=== PATIENT | female | born 1950 | race Caucasian/White ===

== ENCOUNTER 2017-03-26 09:33 | Emergency (ER) | payer MEDICAID ==
[~2017-03-26] VITALS: Ht 162.6 cm; Wt 97.1 kg
[~2017-03-26 09:33] MED LIST: AMLO5TAB2; ASPI-266; BENA40TA2; CLON0.2T; HYDR25TA4; HYDR500T13; IBUP800T24; METF-312; METO25TA5; OXYBUTYNIN 5 MG TABLET; SIMV-13; [UNRECOGNIZED DRUG - CODE]
[2017-03-26] MEDS ORDERED: TRIAMTERENE-HCTZ (10:11)
[2017-03-26] MEDS ORDERED: WARF1TAB36 (10:11)
[2017-03-26] MEDS ORDERED: ATOR40TA52 (10:12)
[2017-03-26] MEDS ORDERED: CYCL5TAB (10:12)
[2017-03-26] MEDS ORDERED: WARF4TAB33 (10:14)
[2017-03-26] MEDS ORDERED: MECL12.554 (10:14)
[2017-03-26] MEDS ORDERED: MORP15TA43 (10:15)
[2017-03-26] MEDS ORDERED: GABA300C8 (10:15)
[2017-03-26] MEDS ORDERED: HYDROCODON-ACETAMINOPHN (10:15)
[2017-03-26] MEDS ORDERED: ENA10T PO (10:16)
[2017-03-26] MEDS ORDERED: SODIUM CHLORIDE 0.9% 250 ML IV ONE (11:25)
[2017-03-26] MEDS ORDERED: KETOROLAC TROMETH 30 MG/ML 1ML VIAL IV ONE (11:30)
[2017-03-26] MEDS ORDERED: DEXAMETHASONE SOD PHOS 4 MG/1ML SDV INJ IV ONE (11:30)
[2017-03-26] MEDS ORDERED: METOCLOPRAMIDE HCL 5MG/ml INJ 2ml VIAL IV ONE (11:30)
[2017-03-26 11:52] LABS: Basophils # (auto) 0 uL; Basophils % (auto) 0.2 % (0.0-2.0); Eosinophils # (auto) 0.1 uL; Eosinophils % (auto) 0.4 % (0.0-7.0); Hematocrit 40.5 % (36.0-46.0); Hemoglobin 13.2 g/dL (12.2-16.2); Lymphocytes % (auto) 7.1 % (10.0-50.0); Mean Corpuscular Hemoglobin 29.1 pg (28.0-32.0); Mean Corpuscular Hgb Conc. 32.7 g/dL (32.0-36.0); Mean Corpuscular Volume 88.9 fL (80.0-100.0); Monocytes # (auto) 0.8 uL; Monocytes % (auto) 5.6 % (0.0-12.0); Neutrophils # (auto) 12.7 uL; Neutrophils % (auto) 86.7 % (37.0-80.0); Platelet Count (auto) 281 10^3/uL (140-450); Red Cell Distribution Width 15.2 % (11.6-16.0); White Blood Cell 14.7 10^3/uL (4.4-10.8)
[2017-03-26 12:24] LABS: Albumin 3.5 g/dL (3.4-5.0); BUN/Creatinine Ratio 17.8; Bilirubin, Total 0.6 mg/dL (0.2-1.0); Calcium 9.6 mg/dL (8.5-10.1); Magnesium 1.8 mg/dL (1.6-2.6); Potassium 3.8 mmol/L (3.5-5.1); Total Protein 8.5 g/dL (6.4-8.2); Uric Acid 7.4 mg/dL (2.6-6.0)
[2017-03-26 13:39] VITALS: BP 157/61
[2017-03-26 14:35] LABS: Urine Bilirubin Negative (Negative); Urine Blood Negative /uL (Negative); Urine Color Yellow (Yellow); Urine Glucose Normal (Normal); Urine Ketone Negative (Negative); Urine Mucus FEW (None Seen); Urine RBC <1 /hpf (0 - 4); Urine Squamous Epithelial Cell FEW /hpf (<5); Urine pH 6.5 (5.0-8.0)
[2017-03-26 14:36] LABS: Urine Nitrite POSITIVE (Negative)
== END 2017-03-26 15:39 | disposition home or self-care (01) ==
LOC: ER 09:33
DX: M10.071 Idiopathic gout, right ankle and foot (principal); N39.0 Urinary tract infection, site not specified; E79.0 Hyperuricemia without signs of inflammatory arthritis and tophaceous disease; E11.21 Type 2 diabetes mellitus with diabetic nephropathy; I48.91 Unspecified atrial fibrillation; E78.5 Hyperlipidemia, unspecified; I10 Essential (primary) hypertension
CPT/HCPCS: 36415; 73630; 80053; 81001; 83735; 84443; 84550; 85025; 96361; 96374; 96375; 99285; J1100; J1885; J2765; J7030